=== PATIENT | female | born 1965 | race Asian ===

== ENCOUNTER → 2017-04-13 | Outpatient (CLI) | payer OTHER ==
[~2017-04-13] VITALS: Ht 162.6 cm; Wt 57.6 kg
[~2017-04-13] MED LIST: NOHOMEMEDS
== END | disposition home or self-care (01) ==
LOC: AMB 09:53
PROC: 0DJD8ZZ Inspection of Lower Intestinal Tract, Via Natural or Artificial Opening Endoscopic (ICD-10-PCS; principal; 2017-04-13)
DX: Z12.11 Encounter for screening for malignant neoplasm of colon (principal)